=== PATIENT | male | born 1965 | race Caucasian/White ===

== ENCOUNTER 2022-12-18 14:28 | Outpatient (OUT) | payer OTHER, SELFPAY ==
--- NOTE | 2022-12-18 14:31 | MR_ITS ---
The [address] [address] Patient Name: MEI PARKER MRN: [id number] date: 1965 Sex: M Assigned Patient Location: MRI Current Patient Location: MRI Accession/Order Number: [id number] Exam Date: 12/18/2022 15:08 Report Date: 12/18/2022 18:42 At the request of: MAGGY CALLES Procedure: MR lumbar spine wo con MR lumbar spine wo con, 12/18/2022 3:08 PM EDT INDICATION: Bilateral Leg Weakness R29.898 COMPARISON: There is no appropriate prior study for comparison. TECHNIQUE: Multiplanar, multisequential MRI images of lumbar spine were obtained without contrast. FINDINGS: For dictation purposes, the lowest complete disc space in the lumbar spine considered as L5-S1. There is normal physiologic lumbar lordosis. Old compression fracture of T12 is noted with loss of height for approximately 60%. Otherwise, the vertebral height is preserved. Bilateral kidney lesions with T2 prolongation not fully characterized by this study and statistically may suggest simple renal cyst. The conus medullaris is at the level of L1. No signal abnormality within the visualized spinal cord is noted. No neural foraminal narrowing or canal stenoses at the level of T12-L1 and L1-L2 is noted. At the level of L2-L3, there are disc bulge with bilateral moderate neuroforaminal narrowing and moderate canal stenosis. At the level of L3-4, there are disc bulge with central annular fissure and bilateral mild neuroforaminal narrowing and mild canal stenosis. At the level of L4-5, there are disc bulge with superimposed central protrusion and bilateral moderate neuroforaminal narrowing and no canal stenosis. At the level of L5-S1, there are grade 1 anterolisthesis uncovering the disc with moderate bilateral neuroforaminal narrowing and no canal stenosis. There is bilateral spondylolysis of pars interarticularis of L5. The paraspinal muscles are unremarkable. There is fusion of the right SI joint. Mild degenerative changes of the left SI joint. MR/MR lumbar spine wo con IMPRESSION: Moderate degenerative changes of lumbar spine in particular at L2-L3 and L5-S1. Electronically authenticated by: SALVADOR FABIAN Date: 12/18/2022 18:42
--- NOTE | 2022-12-18 14:59 | XR_ITS ---
The [address] [address] Patient Name: MEI PARKER MRN: [id number] date: 1965 Sex: M Assigned Patient Location: MRI Current Patient Location: MRI Accession/Order Number: [id number] Exam Date: 12/18/2022 15:00 Report Date: 12/18/2022 15:21 At the request of: MAGGY CALLES Procedure: XR foreign body eye XR foreign body eye, 12/18/2022 3:00 PM EDT, [facility]001 INDICATION: Foreign Body Eye Evaluate for the presence of metallic/radiopaque foreign body, for MRI clearance COMPARISON: None Technique: Frontal and lateral of the orbits obtained. FINDINGS: There is no evidence of radiopaque foreign body in the orbits. XR/XR foreign body eye IMPRESSION: No evidence of radiopaque foreign body. Electronically authenticated by: CHEMO WOODS Date: 12/18/2022 15:21
== END 2022-12-18 14:29 | disposition home or self-care (01) ==
LOC: MRI 14:29
PROVIDERS: PCP Internal Medicine; Visit Provider Psychiatry & Neurology Neurology
DX: R29.898 Other symptoms and signs involving the musculoskeletal system (principal); M47.816 Spondylosis without myelopathy or radiculopathy, lumbar region; M47.817 Spondylosis without myelopathy or radiculopathy, lumbosacral region
CPT/HCPCS: 70030; 72148

== ENCOUNTER 2023-07-13 10:16 | Outpatient (REF) | payer OTHER, SELFPAY ==
[2023-07-13 11:04] LABS: Basophils Absolute Auto 0.1 10^3/uL (0.0-0.1); Basophils Percent Auto 0.7 % (0.2-2.0); Eosinophils Absolute Auto 0.3 10^3/uL (0.0-0.7); Eosinophils Percent Auto 2.9 % (0.9-7.0); Immature Granulocytes Abs Auto 0.05 10^3/uL (0.00-0.03); Immature Granulocytes Pct Auto 0.5 % (0.0-0.5); Lymphocytes Absolute Auto 1.6 10^3/uL (1.2-3.8); Lymphocytes Percent Auto 15.3 % (20.5-60.0); Mean Corpuscular HGB Conc 30.6 g/dL (29.9-35.2); Mean Corpuscular Hemoglobin 27.7 pg (25.9-34.0); Mean Corpuscular Volume 90.7 fL (80.0-94.0); Mean Platelet Volume 9.7 fL (9.5-13.5); Monocytes Percent Auto 9.4 % (1.7-12.0); Neutrophils Absolute Auto 7.3 10^3/uL (1.4-6.5); Neutrophils Percent Auto 71.2 % (43.0-75.0); Platelet Count 204 10^3/uL (150-450); Red Blood Count 3.97 10^6/uL (4.70-6.10); Red Cell Distribution Width 16.8 % (11.0-15.0); White Blood Count 10.2 10^3/uL (4.0-11.0)
[2023-07-13 14:12] LABS: Anion Gap 11.7; BUN Creatinine Ratio 10.6; Calcium 8.8 mg/dL (8.5-10.1); Chloride 105 mmol/L (98-107); Estimated GFR (African America >60 (>=60); Estimated GFR (Non-African Ame >60 (>=60); Glucose 93 mg/dL (74-106); Potassium 3.7 mmol/L (3.5-5.1); Sodium 143 mmol/L (136-145)
== END 2023-07-13 10:17 | disposition home or self-care (01) ==
LOC: LAB 10:16
PROVIDERS: PCP Internal Medicine; Visit Provider Student in an Organized Health Care Education/Training Program
DX: J98.11 Atelectasis (principal)
CPT/HCPCS: 36415; 80048; 85025

== ENCOUNTER 2023-11-22 14:58 | Outpatient (REF) | payer OTHER, MEDICAID, SELFPAY ==
[2023-11-22 15:45] LABS: Hematocrit 31.9 % (42.0-54.0); Hemoglobin 9.6 g/dL (14.0-18.0); Mean Corpuscular HGB Conc 30.1 g/dL (29.9-35.2); Mean Corpuscular Hemoglobin 27.8 pg (25.9-34.0); Mean Corpuscular Volume 92.5 fL (80.0-94.0); Mean Platelet Volume 10.5 fL (9.5-13.5); Platelet Count 292 10^3/uL (150-450); Red Blood Count 3.45 10^6/uL (4.70-6.10); Red Cell Distribution Width 17.2 % (11.0-15.0); White Blood Count 22.7 10^3/uL (4.0-11.0)
[2023-11-22 15:57] LABS: BUN Creatinine Ratio 13.9; Carbon Dioxide 27.4 mmol/L (21.0-32.0); Chloride 96 mmol/L (98-107); Estimated GFR (African America >60 (>=60); Estimated GFR (Non-African Ame >60 (>=60); Potassium 5.4 mmol/L (3.5-5.1); Sodium 133 mmol/L (136-145)
[2023-11-22 16:02] LABS: Band Neutrophils Absolute 1.6 10^3/uL (0.0-0.3); Lymphocytes Absolute Manual 0.68 10^3/uL (1.20-3.80); Monocytes Absolute Manual 0.22 10^3/uL (0.30-0.80)
[2023-11-22 16:03] LABS: Anisocytosis 1+; Hypochromasia 1+
[2023-11-22 16:35] LABS: Glucose 49 mg/dL (74-106)
== END 2023-11-22 14:59 | disposition home or self-care (01) ==
LOC: LAB 14:58
PROVIDERS: PCP Internal Medicine; Visit Provider Student in an Organized Health Care Education/Training Program
DX: E86.0 Dehydration (principal)
CPT/HCPCS: 36415; 80048; 85007; 85027